=== PATIENT | male | born 1955 | race Caucasian/White ===

== ENCOUNTER 2016-12-17 08:29 | Day surgery (SDC) | payer OTHER ==
[2016-12-17] VITALS (9 sets, daily range): BP systolic 125–178; BP diastolic 61–82; PULSE 73–98; RESP 10–19; Ht 177.8 cm; Wt 75.3 kg
[~2016-12-17] VITALS: Ht 177.8 cm; Wt 75.3 kg
[~2016-12-17 08:29] MED LIST: ATROPINE 1 MG/10 ML SYRINGE IV PRN; CEFAZOLIN 2 GM/50 ML (PMX) 50 ML IVPB SCH; DIPHENHYDRAMINE 50 MG INJ IV PRN; EPHEDrine SULFATE 50 MG/5 ML SYG IV PRN; FENTAnyl 50 MCG/ML VIAL IV PRN; HYDROmorphONE (0.2 MG/ML) 10ML SYG IV PRN; LABETALOL HCL 20MG INJ IV PRN; MEPERIDINE 25 MG INJ IV PRN; MIDAZOLAM 1 MG/ML 2 ML INJ IV PRN; ONDANSETRON 4 MG INJ IV PRN; ONDANSETRON 4 MG INJ ONE; OXYCODONE/ACETAMINOPHEN (5/325) TAB PO PRN; SOD CHLORIDE 0.9% 1,000 ML IV SCH; hydrALAzine 20 MG INJ IV PRN; morphine (1 MG/ML) 10ML SYRINGE IV PRN
[2016-12-17] MEDS ORDERED: LISI10TA2 PO (09:02)
[2016-12-17] MEDS ORDERED: ATOR10TA65 PO (09:02)
[2016-12-17] MEDS ORDERED: ASPI-664 PO (09:03)
[2016-12-17] MEDS ORDERED: LANT3I SC (09:06)
[2016-12-17] MEDS ORDERED: INSU200I SQ (09:06)
[2016-12-17] MEDS ORDERED: DEXAMETHASONE 4 MG/ML 1 ML INJ ONE (09:28)
[2016-12-17] MEDS ORDERED: NEOSTIGMINE 3 MG/3 ML SYRINGE ONE (09:28)
[2016-12-17] MEDS ORDERED: FENTAnyl 50 MCG/ML VIAL ONE (09:28)
[2016-12-17] MEDS ORDERED: PROPOFOL 20 ML ONE (09:28)
[2016-12-17] MEDS ORDERED: LIDOCAINE 2% (SDV) 5 ML INJ ONE (09:28)
[2016-12-17] MEDS ORDERED: MIDAZOLAM 1 MG/ML 2 ML INJ ONE (09:28)
[2016-12-17] MEDS ORDERED: GLYCOPYRROLATE 0.4 MG INJ ONE (09:28)
[2016-12-17] MEDS ORDERED: ROCURONIUM 50 MG INJ ONE (09:28)
[2016-12-17] MEDS ORDERED: BUPIVACAINE 0.25% (MPF) 30 ML INJ ONE (10:00)
[2016-12-17] MEDS ORDERED: SUCCINYLCHOLINE CHLORIDE 100 MG/5 ML SYG IV ONE (10:01)
[2016-12-17] MEDS ORDERED: SUGAMMADEX SODIUM 200 MG/2 ML VIAL IV ONE (10:01)
[2016-12-17] MEDS ORDERED: POLYMYXIN/BACITRACIN 1L IRRIG IRR ONE (10:19)
[2016-12-17] MEDS ORDERED: hydrALAzine 20 MG INJ ONE (10:56)
[2016-12-17] MEDS ORDERED: LABETALOL HCL 20MG INJ ONE (11:30)
[2016-12-17] MEDS ORDERED: HYDROCODONE/APAP (5/325) TAB PO ONE (11:30)
--- NOTE | 2016-12-17 11:31 | SIPON ---
Date/Time of Note Date/Time of Note DATE: 12/17/16 TIME: 11:30 Operative Report Preoperative Diagnosis large incarcerated right inguinal hernia Postoperative Diagnosis large incarcerated right inguina hernia large right hydrocele Operation/Procedure Performed 1. open incarcerated right inguinal hernia repair with large ultra pro hernia system mesh 2. hydrocelectomy 3. therapeutic injection of subcutaneous local anesthesia Surgeon see signature line outreach assistant none Anesthesia: general Estimated blood loss: 10 - 50 ml's Transfusion Required none Specimen right hydrocele sac Grafts/Implants none Complications none Rigo JENNINGS Dec 17, 2016 11:31
--- NOTE | 2016-12-17 16:04 | OPR ---
DATE OF OPERATION: 12/17/2016 INDICATION: This is a 61-year-old male with a large incarcerated right inguinal hernia and large hy drocele on the right side. He requests surgical repair. Risks, alternatives, benefits, and personn el were discussed with the patient. Potential complications including but not limited to bleeding, infection, mesh infection, potential spermatic cord injury from potential testicular injury and poss ible need for reoperation were discussed with the patient. Patient expresses understanding and cons ents to the operation. PREOPERATIVE DIAGNOSIS: Incarcerated right inguinal hernia. POSTOPERATIVE DIAGNOSIS: Large incarcerated right inguinal hernia and large right hydrocele. SURGEON: YUNIEL JENNINGS MD. OPERATION PERFORMED: 1. Open incarcerated large right inguinal hernia repair with large UltraPro hernia system mesh. 2. Right hydrocelectomy. 3. Therapeutic injection of subcutaneous local anesthesia. COMPLICATIONS: None. ANESTHESIA: General. ESTIMATED BLOOD LOSS: 25 mL. DESCRIPTION OF PROCEDURE: The patient was taken to the OR and prepped and draped in the usual steri le fashion. Surgical timeout was performed. IV antibiotics were given. Right inguinal oblique inc ision is made with a 10 blade. Dissection cautery was carried down to the external oblique fascia w hich was opened with a 15 blade. This incision is extended medial inferiorly and lateral superiorly with Metzenbaum scissors. Cord structures were identified and encircled with a Raghu drain. The large incarcerated hernia was reduced from the scrotal sac. This appeared to be a large hydrocele. The hydrocele was opened in a controlled fashion and the fluid contents were suctioned out. The h ydrocele sac was then excised and sent for specimen and also marsupialized with a running 3-0 Vicryl . There was good hemostasis. This was then replaced back into the scrotum. The indirect hernia was identified and reduced manually. The disk portion of the UltraPro hernia system mesh was used to b olster the hernia. It was secured in place with a running 0 Prolene from the pubic tubercle along t he shelving edge of the inguinal ligament, superiorly to the internal oblique. This was secured wit h interrupted 3-0 Vicryl. Onlay mesh was secured in a similar fashion with a running 0 Prolene from the pubic tubercle along the shelving edge of the inguinal ligament. Straps were created and reapp roximated around the cord structures and inguinal ring with interrupted 0 Prolene. Onlay mesh was s ecured to the internal oblique with interrupted 3-0 Vicryl. External oblique fascia was closed with running 3-0 Vicryl. Tracy's fascia was closed with interrupted 3-0 Vicryl. Skin was closed using skin hunter. Subcutaneous local anesthesia was injected throughout the incision. Dry dressings w ere applied. Dictated By: YUNIEL BURGER/CLAUDIA Conf#: [id number] DID#: [id number]
== END 2016-12-17 13:05 | disposition home or self-care (01) ==
LOC: SDS 08:29
PROVIDERS: ATTEND Surgery
DX: K40.90 Unilateral inguinal hernia, without obstruction or gangrene, not specified as recurrent (principal); N43.3 Hydrocele, unspecified; E78.5 Hyperlipidemia, unspecified; I10 Essential (primary) hypertension; Z87.891 Personal history of nicotine dependence; E11.9 Type 2 diabetes mellitus without complications
CPT/HCPCS: 49507; 55040; 82962; 88302; C1781; J0360; J1100; J1170; J2175; J2250; J2405; J3010; Z7512; Z7610; J2710